=== PATIENT | male | born 2000 | race Asian ===

== ENCOUNTER 2023-02-19 20:45 | Emergency (ER) | payer OTHER ==
--- NOTE | 2023-02-19 21:22 | ED Physician Documentation ---
History of Present Illness - Stated complaint Stated Complaint: HEAD INJ - Chief complaint Chief Complaint: Heent - History obtained from History obtained from: Patient, Family - History of Present Illness Timing: How many days ago (2) Pain level max: 5 Pain level now: 0 - Additonal information Additional information: 22-year-old male presents to the emergency department after a head injury 2 days ago. He states he was trying to learn how to rollerblade when he fell and struck his head on a wall. No loss of consciousness. Did have a small abrasion to the posterior aspect of the head. He states that when he looks down or up for too long he feels lightheaded, dizzy and nauseated. Initially had a heada elizabeth but that has since resolved. No neck or back pain. No numbness or tingling. Does not take any medications at home. Review of Systems Constitutional: denies: Fever, Chills Eyes: denies: Decreased vision, Photophobia Ears: denies: Ear pain Nose: denies: Rhinorrhea / runny nose, Congestion Respiratory: denies: Cough GI: reports: Nausea. denies: Abdominal Pain, Vomiting, Diarrhea Skin: denies: Rash Musculoskeletal: denies: Neck pain, Back pain Neurologic: denies: LOC PD PAST MEDICAL HISTORY - Past Medical History Past Medical History: No - Past Surgical History Past Surgical History: No - Allergies Allergies/Adverse Reactions: Allergies Allergy/AdvReac Type Severity Reaction Status Date / Time No Known Drug Allergies Allergy Verified 02/19/23 21:05 - Living Situation Living Arrangement: reports: At home - Social History Does the pt smoke?: No Does the pt have substance abuse?: No - Family History Family history: reports: Non contributory PD ED PE NORMAL - Vitals Vital signs reviewed: Yes - General General: Alert and oriented X 3, No acute distress - HEENT HEENT: PERRL, EOMI, Ears normal, Moist mucous membranes, Pharynx benign, Other (Small abrasion to the occiput. No scalp hematomas. 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, No motor deficit, No sensory deficit, Normal speech Eye Opening: Spontaneous Motor: Obeys Commands Verbal: Oriented GCS Score: 15 - Psych Psych: Normal mood, Normal affect Results - Vitals Vitals: Vital Signs - 24 hr 02/19/23 02/19/23 21:01 22:18 Temperature 37.1 C Heart Rate 70 64 Respiratory 17 16 Rate Blood Pressure 154/78 H 138/72 H O2 Saturation 99 98 Oxygen O2 Source Room air - Rads (name of study) CT head Relevant Findings:: Final report received, See rad report PD Medical Decision Making - ED course Complexity details: reviewed results, re-evaluated patient, considered differential, d/w patient, d/w family ED course: No acute findings on head CT. We will treat as a mild concussion. Patient is well-appearing, nontoxic. Afebrile. GCS 15. No vomiting. No focal neurological deficits. He is requesting a second John's note. This was written. We will have [place] released back to [place]. Patient counseled regarding signs and symptoms for which I believe and urgent re-evaluation would be necessary. Patient with good understanding of and agreement to plan and is comfortable going home at this time This document was made in part using voice recognition software. While efforts are made to proofread this document, sound alike and grammatical errors may occur. Departure - Departure Disposition: 01 Home, Self Care Clinical Impression: Concussion Qualifiers: Encounter type: initial encounter Loss of consciousness presence/duration: without LOC Qualified Code(s): S06.0X0A - Concussion without loss of consciousness, initial encounter Condition: Good Instructions: ED Concussion, ED Head Injury Closed Follow-Up: [facility] [Provider Group] - Within 3 Days Comments: Please follow-up with your doctor for further care and to be released back to regular work. Your head CT does not show any acute abnormalities today. You likely have a mild concussion. You can use Motrin or Tylenol as needed for any pain. You can sleep, they do not need to wake you up. Forms: Activity restrictions
--- NOTE | 2023-02-19 22:00 | CT Report ---
PROCEDURE: HEAD WO INDICATIONS: head injury, dizzy TECHNIQUE: Noncontrast 4.5 mm thick angled axial sections acquired from the foramen magnum to the vertex. For r adiation dose reduction, the following was used: automated exposure control, adjustment of mA and/or kV according to patient size. COMPARISON: None. FINDINGS: Image quality: Excellent. CSF spaces: Basal cisterns are patent. No extra-axial fluid collections. Ventricles are normal in size and shape. Brain: No intracranial hemorrhage, mass, or mass effect. Garcia-white matter interface appears preser nichelle. Skull and face: Calvarium and visualized facial bones are intact, without suspicious lesions. Sinuses: Visualized sinuses and mastoids are clear. IMPRESSION: 1. No acute intracranial abnormality. Reviewed by: Manuel Mejia MD on 02/19/2023 9:58 PM PDT Approved by: Manuel Mejia MD on 02/19/2023 9:58 PM PDT Station ID: [id number]
[2023-02-19 22:19] VITALS: BP 138/72
== END 2023-02-19 22:30 | disposition home or self-care (01) ==
LOC: ED 20:45
DX: S06.0X0A Concussion without loss of consciousness, initial encounter (principal); W19.XXXA Unspecified fall, initial encounter; Y93.51 Activity, roller skating (inline) and skateboarding
CPT/HCPCS: 99283; 99284